=== PATIENT | female | born 1950 | race Caucasian/White ===

== ENCOUNTER 2018-01-09 13:00 | Outpatient (RCR) | payer MEDICARE, SELFPAY | END 2018-01-29 10:08 | disposition home or self-care (01) | LOC: PT 13:00 | PROVIDERS: Visit Provider Physician Assistant | DX: S46.811A Strain of other muscles, fascia and tendons at shoulder and upper arm level, right arm, initial encounter (principal) | CPT/HCPCS: 97010; 97014; 97110; 97163; 97530; G0283 ==

== ENCOUNTER 2022-12-06 13:18 | Outpatient (CLI) | payer MEDICARE, SELFPAY ==
[2022-12-06 13:35] VITALS: BP 138/69; PULSE 60; RESP 18; TEMP 36.6; O2SAT 95
== END 2022-12-06 13:35 | disposition home or self-care (01) ==
LOC: INF 13:20
PROVIDERS: PCP Family Medicine; Visit Provider Family Medicine
DX: M81.0 Age-related osteoporosis without current pathological fracture (principal)
CPT/HCPCS: 96372; J0897

== ENCOUNTER 2023-06-14 10:57 | Outpatient (CLI) | payer MEDICARE, SELFPAY ==
[2023-06-14 11:10] VITALS: BP 121/67; PULSE 69; RESP 16; TEMP 36.8; O2SAT 98
[2023-06-14] MEDS: DENOSUMAB 60 MG/ML SYRINGE SQ (11:10)
== END 2023-06-14 11:25 | disposition home or self-care (01) ==
LOC: INF 10:58
PROVIDERS: PCP Family Medicine; Visit Provider Family Medicine
DX: M81.0 Age-related osteoporosis without current pathological fracture (principal)
CPT/HCPCS: 96372; J0897

== ENCOUNTER 2023-12-24 11:12 | Outpatient (CLI) | payer MEDICARE, SELFPAY ==
[2023-12-24 11:30] VITALS: BP 147/63; PULSE 81; RESP 18; TEMP 36.6; O2SAT 99
[2023-12-24] MEDS: DENOSUMAB 60 MG/ML SYRINGE SUBCUT (11:30)
== END 2023-12-24 11:45 | disposition home or self-care (01) ==
LOC: INF 11:13
PROVIDERS: PCP Family Medicine; Visit Provider Family Medicine
DX: M81.0 Age-related osteoporosis without current pathological fracture (principal)
CPT/HCPCS: 96372; J0897

== ENCOUNTER 2024-07-14 11:02 | Outpatient (CLI) | payer MEDICARE, SELFPAY ==
[2024-07-14 11:21] VITALS: BP 142/78; PULSE 70; RESP 16; TEMP 36.7; O2SAT 97
[2024-07-14] MEDS: DENOSUMAB 60 MG/ML SYRINGE SUBCUT (11:21)
== END 2024-07-14 11:45 | disposition home or self-care (01) ==
LOC: INF 11:03
PROVIDERS: PCP Family Medicine; Visit Provider Family Medicine
DX: M81.0 Age-related osteoporosis without current pathological fracture (principal)
CPT/HCPCS: 96372; J0897

== ENCOUNTER 2025-01-14 10:59 | Outpatient (CLI) | payer MEDICARE, SELFPAY ==
[2025-01-14 11:08] VITALS: BP 150/66; PULSE 56; RESP 18; TEMP 36.6; O2SAT 96
[2025-01-14] MEDS: DENOSUMAB 60 MG/ML SYRINGE SUBCUT (11:08)
== END 2025-01-14 23:59 | disposition home or self-care (01) ==
LOC: INF 11:00
PROVIDERS: PCP Family Medicine; Visit Provider Family Medicine
DX: Z04.89 Encounter for examination and observation for other specified reasons (principal)
CPT/HCPCS: 96372; J0897